=== PATIENT | female | born 1970 | race American Indian/Alaskan Native ===

== ENCOUNTER 2017-08-24 18:08 | Emergency (ER) | payer MEDICARE ==
[2017-08-24] MEDS ORDERED: PEPCID IV ONE (20:46)
[2017-08-24] MEDS ORDERED: NACL 0.9% 1000 ML 1,000 ML IV ONE (20:46)
[2017-08-24] MEDS ORDERED: DECADRON IV ONE (20:46)
[2017-08-24] MEDS ORDERED: BENADRYL IV ONE (20:46)
--- NOTE | 2017-08-24 20:59 | Emergency Department Report ---
ED Allergic Reaction HPI - General Chief complaint: Allergic Reaction Stated complaint: SWOLLEN LIP Time Seen by Provider: 08/24/17 20:43 Source: patient Mode of arrival: Ambulatory Limitations: No Limitations - History of Present Illness Initial Comments: This is a 46-year-old female nontoxic, well nourished in appearance, no acute signs of distress presents to the ED with c/o of lip swellings from increased lisinopril dose. Patient states stated that her dose went higher and this morning she developed swelling that worsened throughout the day. Patient denies any drooling, hoarseness. Patient denies any trauma. She denies any fever, chills, nausea, vomiting, chest pain, shortness of breath, headache, stiff neck, numbness or tingling. Patient denies and difficulty breathing. Patient states allergies to Latex. PMH includes HTN and DM. MD Complaint: allergic reaction, facial swelling -: This morning Exposure: unknown Symptoms: lip swelling Severity: mild Treatment Prior to Arrival: none Previous Allergy History: none - Related Data Previous Rx's Medication Instructions Recorded Last Taken Type amLODIPine [Norvasc] 5 mg PO DAILY #30 tab 08/24/17 Unknown Rx diphenhydrAMINE [Benadryl CAP] 25 mg PO Q6HR PRN #20 capsule 08/24/17 Unknown Rx Allergies Allergy/AdvReac Type Severity Reaction Status Date / Time Latex, Natural Rubber Allergy Rash Verified 08/24/17 18:17 ED Review of Systems ROS: Stated complaint: SWOLLEN LIP Other details as noted in HPI Constitutional: denies: chills, fever Eyes: denies: eye pain, eye discharge, vision change ENT: denies: ear pain, throat pain Respiratory: denies: cough, shortness of breath, wheezing Cardiovascular: denies: chest pain, palpitations Endocrine: no symptoms reported Gastrointestinal: denies: abdominal pain, nausea, diarrhea Genitourinary: denies: urgency, dysuria, discharge Musculoskeletal: denies: back pain, joint swelling, arthralgia Skin: denies: rash, lesions Neurological: denies: headache, weakness, paresthesias Psychiatric: denies: anxiety, depression Hematological/Lymphatic: denies: easy bleeding, easy bruising ED Past Medical Hx - Past Medical History Hx Hypertension: Yes Hx Diabetes: Yes - Surgical History Past Surgical History?: No - Social History Smoking Status: Current Every Day Smoker Substance Use Type: None - Medications Home Medications: Home Medications Medication Instructions Recorded Confirmed Last Taken Type amLODIPine [Norvasc] 5 mg PO DAILY #30 tab 08/24/17 Unknown Rx diphenhydrAMINE [Benadryl CAP] 25 mg PO Q6HR PRN #20 capsule 08/24/17 Unknown Rx ED Physical Exam - General Limitations: No Limitations General appearance: alert, in no apparent distress - Head Head exam: Present: atraumatic, normocephalic - Eye Eye exam: Present: normal appearance Pupils: Present: normal accommodation - ENT ENT exam: Present: normal exam, normal orophraynx, mucous membranes moist, TM's normal bilaterally, normal external ear exam, other (Lower lip swelling. Normal size tongue. No other angioedema present.) - Neck Neck exam: Present: normal inspection, full ROM. Absent: tenderness, meningismus, lymphadenopathy - Respiratory Respiratory exam: Present: normal lung sounds bilaterally. Absent: respiratory distress, wheezes, rales, rhonchi, stridor, chest wall tenderness, accessory muscle use, decreased breath sounds, prolonged expiratory - Cardiovascular Cardiovascular Exam: Present: regular rate, normal rhythm, normal heart sounds. Absent: systolic murmur, diastolic murmur, rubs, gallop - GI/Abdominal GI/Abdominal exam: Present: soft, normal bowel sounds - Extremities Exam Extremities exam: Present: normal inspection, full ROM, normal capillary refill - Back Exam Back exam: Present: normal inspection, full ROM - Neurological Exam Neurological exam: Present: alert, oriented X3, normal gait - Psychiatric Psychiatric exam: Present: normal affect, normal mood - Skin Skin exam: Present: warm, dry, intact, normal color. Absent: rash ED Course Vital Signs 08/24/17 08/24/17 08/24/17 18:13 21:19 21:24 Temperature 98.3 F 98.5 F Pulse Rate 89 79 79 Respiratory 16 18 Rate Blood Pressure 156/100 155/105 Blood Pressure 155/105 [Left] O2 Sat by Pulse 97 99 Oximetry - Reevaluation(s) Reevaluation #1: 08/24/17 21:02 Patient is speaking in full sentences with no signs of distress noted. ED Medical Decision Making - Medical Decision Making This is a 46-year-old female that presents with angioedema from Lisiniopril. Patient is stable was examined by me. There is facial swelling but has significantly decreased prior to discharge. There is no cellulitis. No hoarseness. Patient received Benadryl, Decadron, and Pepcid in the ED IV. Patient was instructed not to operate any machinery after discharge due to possible drowsiness of Benadryl. Patient stated that a family member will drive patient home after discharge. Patient is discharged with Benadryl. Will not start patient on Prednisone due to DM. Patient was instructed to stop taking Lisinipril and I will start patient on Norvasc 5mg. Patient missed her dose today so I gave patient a dose of Norvasc in the ED. Patient was referred to Follow-up with a primary care doctor in 3-5 days or if symptoms worsen and continue return to emergency room as soon as possible. At time of discharge, the patient does not seem toxic or ill in appearance. No acute signs of distress noted. Patient agrees to discharge treatment plan of care. No further questions noted by the patient. Critical care attestation.: If time is entered above; I have spent that time in minutes in the direct care of this critically ill patient, excluding procedure time. ED Disposition Clinical Impression: Angioedema Qualifiers: Encounter type: initial encounter Qualified Code(s): T78.3XXA - Angioneurotic edema, initial encounter Disposition: TO HOME OR SELFCARE Is pt being admited?: No Does the pt Need Aspirin: No Condition: Stable Instructions: Angioedema (ED) Additional Instructions: Follow-up with a primary care doctor in 2-3 days or if symptoms worsen and continue return to emergency room as soon as possible. Stop taking lisinopril and start taking Norvasc. Prescriptions: amLODIPine [Norvasc] 5 mg PO DAILY #30 tab diphenhydrAMINE [Benadryl CAP] 25 mg PO Q6HR PRN #20 capsule PRN Reason: Itching Referrals: PRIMARY CARE, [Primary Care Provider] - 3-5 Days ELIAZAR VEGA MD [Staff Physician] - 3-[address] [facility] [Outside] - 3-5 Days [facility] [Outside] - 3-5 Days Forms: Work/School Release Form(ED)
[2017-08-24] MEDS ORDERED: NORVASC PO ONE (21:04)
--- NOTE | 2017-08-24 21:27 | Emergency Department Report ---
Blank Doc - Documentation Documentation: I have examined Ms. Linton alongside my colleague Misael Eduardo NP. Ms. Linton has mild angioedema involving her left lower lip. She has no tongue or neck involvement. Oropharyngeal is otherwise normal. She has mild edema at the left lower lip in isolcation. Symptoms have been present for almost 12 hours since 9:45 PM. She understood instructions. I did not recommend prednisone pack. I recommended supportive care only. I provided supervision of this case. Also provided education to the patient.
[2017-08-24 22:26] VITALS: BP 152/94
== END 2017-08-24 22:32 | disposition home or self-care (01) ==
LOC: ED 18:08
DX: T78.3XXA Angioneurotic edema, initial encounter (principal); I10 Essential (primary) hypertension; E11.9 Type 2 diabetes mellitus without complications; F17.200 Nicotine dependence, unspecified, uncomplicated; Z91.040 Latex allergy status
CPT/HCPCS: 96374; 96375; 99283; J1100; J1200; J7030